=== PATIENT | male | born 1950 | race Caucasian/White ===

== ENCOUNTER 2019-09-21 12:54 | Observation (INO) ==
[2019-09-21] MEDS ORDERED: ASPIRIN 325 MG TABLET PO STA (14:01)
[2019-09-21] MEDS ORDERED: NITROGLYCERIN SL 0.4 MG TABLET SL PRN ×2 (14:01→18:18)
[2019-09-21 14:04] LABS: Troponin I < 0.015 NG/ML (0.00-0.045)
[2019-09-21 14:49] LABS: Basophils # 0.1 10*3/uL (0.0-0.2); Basophils % 0.7 % (0.0-0.8); Eosinophils # 0.1 10*3/uL (0.0-0.87); Eosinophils % 1.4 % (0.00-10.9); Hematocrit 52.8 VOL% (42.0-52.0); Hemoglobin 17.9 GM/DL (14.0-18.0); Immature Granulocytes % 0.2 %; Immature Granulocytes Absolute 0.02 #; Lymphocytes # 3.3 10*3/uL (1.4-4.0); Lymphocytes % 37.9 % (21.2-54.2); Mean Corpuscular HGB Conc 33.9 GM/DL (32-36); Mean Corpuscular Volume 89.9 FL (87-102); Mean Platelet Volume 10.9 FL (9.6-12.0); Monocytes % 7.8 % (1.7-12.7); Platelet Count 273 T/CUMM (130-400); Red Blood Count 5.87 MC/CUMM (3.8-5.5); Red Cell Distribution Width 12.4 % (9.3-17.3); White Blood Count 8.6 T/CUMM (4-12)
[2019-09-21 14:58] LABS: INR 1.4
[2019-09-21 14:59] LABS: Partial Thromboplastin Time 44.3 SECS (23.9-33.8)
[2019-09-21 15:06] LABS: Calcium 9.4 MG/DL (8.5-10.1); Osmolality,Calculated 272.1 MOS/KG (273-304)
[2019-09-21 15:29] LABS: Apearance,Urine CLEAR (Clear); Bilirubin,Urine Negative (Negative); Blood, Urine Small mg/dL (Negative); Glucose,Urine (UA) Negative (Negative); Hyaline Casts,Urine 24 /LPF (0-3); Ketones,Urine Negative (Negative); Mucus,Urine Occasional /LPF (Occasional); Nitrite,Urine Negative (Negative); Protein,Urine Negative; RBC,Urine 1 /HPF (0-4); Urine Color Straw (Yellow); Urine Specific Gravity 1.008 (1.001-1.035); Urine Urobilinogen < 2.0 EU/DL (0.2-1.0); WBC,Urine <1 /HPF (0-6)
[2019-09-21] MEDS ORDERED: DILTIAZEM 50 MG/10 ML VIAL IV STA (16:05)
[2019-09-21] MEDS: dilTIAZem Drip 125 MG/125 ML PREMIX IV SCH (16:25)
[2019-09-21] MEDS ORDERED: DEXTROSE 50% 25 GM/50 ML VIAL IV PRN (18:18)
[2019-09-21] MEDS ORDERED: ONDANSETRON 4 MG/2 ML VIAL IV PRN (18:18)
[2019-09-21] MEDS ORDERED: GLUCAGON 1 MG VIAL IM PRN ×2 (18:18→18:25)
[2019-09-21] MEDS ORDERED: DEXTROSE 10% 250 ML BAG IV PRN (18:25)
[2019-09-21] MEDS ORDERED: dilTIAZem Drip 125 MG/125 ML PREMIX IV SCH (18:30)
[2019-09-21] MEDS: LACTATED RINGERS 1,000 ML IV SCH (18:30)
[2019-09-21 20:22] LABS: Troponin I < 0.015 NG/ML (0.00-0.045)
[2019-09-21] MEDS: ACETAMINOPHEN 325 MG TABLET PO PRN (20:37)
[2019-09-22] MEDS: LACTATED RINGERS 1,000 ML IV SCH (04:25)
[2019-09-22 05:52] LABS: Basophils # 0.1 10*3/uL (0.0-0.2); Basophils % 0.5 % (0.0-0.8); Eosinophils # 0.2 10*3/uL (0.0-0.87); Eosinophils % 1.7 % (0.00-10.9); Hematocrit 51.1 VOL% (42.0-52.0); Hemoglobin 17.3 GM/DL (14.0-18.0); Immature Granulocytes % 0.2 %; Immature Granulocytes Absolute 0.02 #; Lymphocytes # 4.4 10*3/uL (1.4-4.0); Lymphocytes % 47.2 % (21.2-54.2); Mean Corpuscular HGB Conc 33.9 GM/DL (32-36); Mean Platelet Volume 10.5 FL (9.6-12.0); Monocytes % 7.2 % (1.7-12.7); Neutrophils % 43.2 % (38.7-73.9); Platelet Count 249 T/CUMM (130-400); Red Blood Count 5.74 MC/CUMM (3.8-5.5); Red Cell Distribution Width 12.4 % (9.3-17.3); White Blood Count 9.3 T/CUMM (4-12)
[2019-09-22] MEDS: ACETAMINOPHEN 325 MG TABLET PO PRN ×3 (06:02→21:34)
[2019-09-22 07:34] LABS: Risk Ratio 4.84; VLDL CHOLESTEROL 26.2 MG/DL
[2019-09-22 07:46] LABS: Troponin I < 0.015 NG/ML (0.00-0.045)
[2019-09-22] MEDS: PANTOPRAZOLE 40 MG TABLET PO SCH (08:50)
[2019-09-22] MEDS: AMIODARONE 200 MG TABLET PO SCH ×2 (08:50→21:36)
[2019-09-22] MEDS: RIVAROXABAN 20 MG TABLET PO SCH (08:51)
[2019-09-22] MEDS ORDERED: amLODIPine 5 MG TABLET PO SCH (09:00)
[2019-09-22] MEDS ORDERED: METOPROLOL TARTRATE 25 MG TABLET PO SCH (09:00)
[2019-09-22] MEDS ORDERED: RIVAROXABAN 10 MG TABLET PO SCH (09:00)
[2019-09-22] MEDS: TAMSULOSIN 0.4 MG CAPSULE PO SCH (11:57)
[2019-09-22] MEDS: carvediloL 6.25 MG TABLET PO SCH (16:27)
[2019-09-22] MEDS: ROSUVASTATIN 20 MG TABLET PO SCH (21:36)
[2019-09-22] MEDS: SACUBITRIL/VALSARTAN 49-51 MG TABLET PO SCH (21:36)
[2019-09-23] MEDS: LACTATED RINGERS 1,000 ML IV SCH ×2 (01:11→07:16)
[2019-09-23 06:03] LABS: Calcium 8.2 MG/DL (8.5-10.1); Osmolality,Calculated 276.8 MOS/KG (273-304)
[2019-09-23] MEDS: PANTOPRAZOLE 40 MG TABLET PO SCH (09:21)
[2019-09-23] MEDS: carvediloL 6.25 MG TABLET PO SCH ×2 (09:22→17:02)
[2019-09-23] MEDS: TAMSULOSIN 0.4 MG CAPSULE PO SCH (09:22)
[2019-09-23] MEDS: AMIODARONE 200 MG TABLET PO SCH ×2 (09:22→21:14)
[2019-09-23] MEDS: RIVAROXABAN 20 MG TABLET PO SCH (09:22)
[2019-09-23] MEDS: SACUBITRIL/VALSARTAN 49-51 MG TABLET PO SCH ×2 (09:23→21:15)
[2019-09-23] MEDS ORDERED: POTASSIUM CHLORIDE 20 MEQ TABLET PO ONE (09:38)
[2019-09-23 09:58] LABS: Bilirubin,Direct 0.2 MG/DL (0.0-0.20); Bilirubin,Indirect 0.6 MG/DL (0.0-1.0); Bilirubin,Total 0.8 MG/DL (0.2-1.0); Total Protein 6.5 G/DL (6.4-8.3)
[2019-09-23 15:44] LABS: Apearance,Urine CLEAR (Clear); Bilirubin,Urine Negative (Negative); Blood, Urine Negative (Negative); Glucose,Urine (UA) Negative (Negative); Hyaline Casts,Urine 3 /LPF (0-3); Ketones,Urine Negative (Negative); Mucus,Urine Occasional /LPF (Occasional); Nitrite,Urine Negative (Negative); Protein,Urine Negative; RBC,Urine 2 /HPF (0-4); Urine Color Yellow (Yellow); Urine Specific Gravity 1.017 (1.001-1.035); WBC,Urine 1 /HPF (0-6)
[2019-09-23] MEDS: ROSUVASTATIN 20 MG TABLET PO SCH (21:15)
[2019-09-24] MEDS: ACETAMINOPHEN 325 MG TABLET PO PRN ×2 (01:55→15:50)
[2019-09-24] MEDS: dilTIAZem Drip 125 MG/125 ML PREMIX IV SCH (02:52)
[2019-09-24 06:18] LABS: Calcium 8.7 MG/DL (8.5-10.1); Osmolality,Calculated 278.7 MOS/KG (273-304)
[2019-09-24] MEDS: TAMSULOSIN 0.4 MG CAPSULE PO SCH (10:19)
[2019-09-24] MEDS: carvediloL 6.25 MG TABLET PO SCH ×2 (10:19→17:44)
[2019-09-24] MEDS: hydrALAZINE 25 MG TABLET PO SCH ×3 (10:20→21:50)
[2019-09-24] MEDS: ISOSORBIDE MONONITRATE 30 MG TABLET PO SCH (10:20)
[2019-09-24] MEDS: AMIODARONE 200 MG TABLET PO SCH ×2 (10:20→21:50)
[2019-09-24] MEDS: PANTOPRAZOLE 40 MG TABLET PO SCH (10:20)
[2019-09-24] MEDS: RIVAROXABAN 20 MG TABLET PO SCH (10:20)
[2019-09-24 12:35] LABS: Apearance,Urine CLEAR (Clear); Bacteria,Urine Occasional /HPF (Few); Bilirubin,Urine Negative (Negative); Blood, Urine Small mg/dL (Negative); Glucose,Urine (UA) Negative (Negative); Ketones,Urine Negative (Negative); Mucus,Urine Occasional /LPF (Occasional); Nitrite,Urine Negative (Negative); Protein,Urine Negative; RBC,Urine 1 /HPF (0-4); Urine Color Yellow (Yellow); Urine Specific Gravity 1.016 (1.001-1.035); WBC,Urine <1 /HPF (0-6)
[2019-09-24] MEDS: ROSUVASTATIN 20 MG TABLET PO SCH (21:50)
[2019-09-25] MEDS: ACETAMINOPHEN 325 MG TABLET PO PRN ×2 (01:00→09:47)
[2019-09-25 05:26] LABS: Calcium 8.5 MG/DL (8.5-10.1); Osmolality,Calculated 276.7 MOS/KG (273-304)
[2019-09-25] MEDS: ISOSORBIDE MONONITRATE 30 MG TABLET PO SCH (09:46)
[2019-09-25] MEDS: TAMSULOSIN 0.4 MG CAPSULE PO SCH (09:47)
[2019-09-25] MEDS: carvediloL 6.25 MG TABLET PO SCH (09:48)
[2019-09-25] MEDS: hydrALAZINE 25 MG TABLET PO SCH (09:48)
[2019-09-25] MEDS: RIVAROXABAN 20 MG TABLET PO SCH (09:48)
[2019-09-25] MEDS: PANTOPRAZOLE 40 MG TABLET PO SCH (09:49)
[2019-09-25] MEDS: AMIODARONE 200 MG TABLET PO SCH (09:49)
[2019-09-25 12:05] VITALS: BP 128/83
== END 2019-09-25 12:21 | disposition home or self-care (01) ==
LOC: N.ED 12:54 → N.EDINP 12:54 → N.TELES 20:13
PROVIDERS: ADMIT Internal Medicine; ATTEND Internal Medicine

== ENCOUNTER 2020-03-20 13:59 | Inpatient (IN) ==
[2020-03-20] MEDS ORDERED: DOCUSATE SODIUM 100 MG CAPSULE PO PRN (14:01)
[2020-03-20] MEDS ORDERED: hydrALAZINE 20 MG/1 ML VIAL IV PRN (14:01)
[2020-03-20] MEDS ORDERED: ZALEPLON 5 MG CAPSULE PO PRN (14:01)
[2020-03-20] MEDS ORDERED: ACETAMINOPHEN 325 MG TABLET PO PRN (14:01)
[2020-03-20] MEDS ORDERED: diphenhydrAMINE CAP 25 MG CAPSULE PO PRN (14:01)
[2020-03-20] MEDS ORDERED: PROMETHAZINE 25 MG TABLET PO PRN (14:01)
[2020-03-20] MEDS ORDERED: ONDANSETRON 4 MG/2 ML VIAL IV PRN (14:01)
[2020-03-20] MEDS ORDERED: POTASSIUM CHLORIDE 20 MEQ TABLET PO PRN (14:01)
[2020-03-20] MEDS ORDERED: ALUMINUM/MAGNES/SIMETH MAX STR 30 ML UDCUP PO PRN (14:01)
[2020-03-20] MEDS ORDERED: MAGNESIUM SULF RIDER 2 GM in PREMIX 1 EACH IV PRN (14:01)
[2020-03-20] MEDS ORDERED: MAGNESIUM SULF RIDER 4 GM in PREMIX 1 EACH IV PRN (14:01)
[2020-03-20] MEDS ORDERED: guaiFENesin/DM ER 600-30 MG TABLET PO PRN (14:01)
[2020-03-20] MEDS ORDERED: SOTALOL 80 MG TABLET PO SCH (14:30)
[2020-03-20 16:45] LABS: Albumin 3.5 G/DL (3.4-5.0); Bilirubin,Total 0.5 MG/DL (0.2-1.0); Calcium 8.7 MG/DL (8.5-10.1); Osmolality,Calculated 283.4 MOS/KG (273-304); Total Protein 7.2 G/DL (6.4-8.3)
[2020-03-20 17:22] LABS: Basophils # 0.1 10*3/uL (0.0-0.2); Basophils % 0.5 % (0.0-0.8); Eosinophils # 0.1 10*3/uL (0.0-0.87); Hematocrit 47.5 VOL% (42.0-52.0); Immature Granulocytes % 0.2 %; Immature Granulocytes Absolute 0.02 #; Lymphocytes # 2.9 10*3/uL (1.4-4.0); Lymphocytes % 31.3 % (21.2-54.2); Mean Corpuscular HGB Conc 33.7 GM/DL (32-36); Mean Corpuscular Volume 93.9 FL (87-102); Monocytes % 8.4 % (1.7-12.7); Neutrophils % 58.6 % (38.7-73.9); Platelet Count 229 T/CUMM (130-400); Red Blood Count 5.06 MC/CUMM (3.8-5.5); Red Cell Distribution Width 12.8 % (9.3-17.3); White Blood Count 9.2 T/CUMM (4-12)
[2020-03-20 17:28] LABS: Thyroid Stimulating Hormone 2.11 uIU/ml (0.358-3.74)
[2020-03-20] MEDS: SOTALOL 80 MG TABLET PO SCH (17:45)
[2020-03-20] MEDS: carvediloL 3.125 MG TABLET PO SCH (21:05)
[2020-03-21] MEDS: SOTALOL 80 MG TABLET PO SCH ×2 (04:27→17:50)
[2020-03-21 05:20] LABS: Basophils # 0.1 10*3/uL (0.0-0.2); Basophils % 0.7 % (0.0-0.8); Eosinophils # 0.1 10*3/uL (0.0-0.87); Eosinophils % 1.5 % (0.00-10.9); Hematocrit 44.5 VOL% (42.0-52.0); Immature Granulocytes % 0.3 %; Immature Granulocytes Absolute 0.02 #; Lymphocytes # 2.8 10*3/uL (1.4-4.0); Mean Corpuscular HGB Conc 33.7 GM/DL (32-36); Mean Corpuscular Volume 93.1 FL (87-102); Mean Platelet Volume 10.8 FL (9.6-12.0); Monocytes % 7.6 % (1.7-12.7); Neutrophils % 48.9 % (38.7-73.9); Platelet Count 184 T/CUMM (130-400); Red Blood Count 4.78 MC/CUMM (3.8-5.5); Red Cell Distribution Width 12.9 % (9.3-17.3); White Blood Count 6.7 T/CUMM (4-12)
[2020-03-21 05:45] LABS: Blood Urea Nitrogen 26 MG/DL (7-18); Calcium 8.4 MG/DL (8.5-10.1); Estimated Glom Filtration Rate 38 ML/MIN; Glucose 93 MG/DL (74-106); Osmolality,Calculated 283.4 MOS/KG (273-304); Troponin I < 0.015 NG/ML (0.00-0.045)
[2020-03-21] MEDS ORDERED: POTASSIUM CHLORIDE RIDER 10 MEQ in PREMIX 1 EACH IV PRN (06:47)
[2020-03-21] MEDS ORDERED: diphenhydrAMINE CAP 25 MG CAPSULE PO ONE (06:47)
[2020-03-21] MEDS ORDERED: DIAZEPAM 5 MG TABLET PO ONE (06:47)
[2020-03-21] MEDS ORDERED: SODIUM CHLORIDE 0.9% 1,000 ML IV SCH (07:00)
[2020-03-21] MEDS ORDERED: OLMESARTAN 5 MG TABLET PO SCH (09:00)
[2020-03-21] MEDS ORDERED: VALSARTAN 80 MG TABLET PO SCH (09:00)
[2020-03-21] MEDS ORDERED: VERAPAMIL 5 MG/2 ML VIAL ONE (09:03)
[2020-03-21] MEDS ORDERED: NITROGLYCERIN DRIP 50 MG/250 ML BOTTLE IV ONE (09:03)
[2020-03-21] MEDS ORDERED: LIDOCAINE 1% 20 ML VIAL ONE (09:03)
[2020-03-21] MEDS ORDERED: HEPARIN/NACL 0.9% 2 UNITS/ML 1,000 ML IV ONE (09:03)
[2020-03-21] MEDS ORDERED: MIDAZOLAM 2 MG/2 ML VIAL ONE (11:55)
[2020-03-21] MEDS ORDERED: fentaNYL 100 MCG/2 ML VIAL ONE (11:56)
[2020-03-21] MEDS ORDERED: ENOXAPARIN 60 MG/0.6 ML SYRINGE ONE (12:06)
[2020-03-21] MEDS: PANTOPRAZOLE 40 MG TABLET PO SCH (13:14)
[2020-03-21] MEDS: carvediloL 3.125 MG TABLET PO SCH ×2 (15:05→20:42)
[2020-03-22] MEDS: SOTALOL 80 MG TABLET PO SCH (04:00)
[2020-03-22 07:15] LABS: Basophils # 0.1 10*3/uL (0.0-0.2); Basophils % 0.6 % (0.0-0.8); Eosinophils # 0.2 10*3/uL (0.0-0.87); Eosinophils % 2.3 % (0.00-10.9); Hematocrit 43.1 VOL% (42.0-52.0); Hemoglobin 14.2 GM/DL (14.0-18.0); Immature Granulocytes % 0.5 %; Immature Granulocytes Absolute 0.04 #; Lymphocytes # 3.2 10*3/uL (1.4-4.0); Lymphocytes % 37.8 % (21.2-54.2); Mean Corpuscular HGB Conc 32.9 GM/DL (32-36); Mean Corpuscular Volume 94.5 FL (87-102); Mean Platelet Volume 10.8 FL (9.6-12.0); Neutrophils % 50.8 % (38.7-73.9); Platelet Count 195 T/CUMM (130-400); Red Blood Count 4.56 MC/CUMM (3.8-5.5); White Blood Count 8.4 T/CUMM (4-12)
[2020-03-22 07:20] LABS: Calcium 8.2 MG/DL (8.5-10.1); Osmolality,Calculated 283.3 MOS/KG (273-304)
[2020-03-22 08:05] VITALS: BP 139/69
[2020-03-22] MEDS: PANTOPRAZOLE 40 MG TABLET PO SCH (08:22)
[2020-03-22] MEDS: carvediloL 3.125 MG TABLET PO SCH (08:22)
[2020-03-22] MEDS ORDERED: RIVAROXABAN 20 MG TABLET PO SCH (09:00)
[2020-03-23] MEDS ORDERED: ASPIRIN EC 81 MG TABLET PO SCH (09:00)
[2020-03-23] MEDS ORDERED: SOTALOL 80 MG TABLET PO SCH (09:00)
== END 2020-03-22 11:31 | disposition home or self-care (01) | DRG 287 ==
LOC: N.TELEN → OBSVTOIN 14:56
PROVIDERS: ADMIT Internal Medicine Interventional Cardiology; ATTEND Internal Medicine Interventional Cardiology
PROC: CLCCHCL (ICD-10-PCS; 2020-03-21 12:30)